=== PATIENT | female | born 1990 | race Caucasian/White ===

== ENCOUNTER → 2016-05-23 | Outpatient (CLI) | payer BC | LOC: BHSO 15:34 | DX: F41.1 Generalized anxiety disorder (principal) ==

== ENCOUNTER → 2016-08-02 | Outpatient (CLI) | payer BC | LOC: BHSO 10:34 | DX: F41.1 Generalized anxiety disorder (principal) ==

== ENCOUNTER → 2016-12-07 | Outpatient (CLI) | payer BC | LOC: BHSO 15:11 | DX: F41.1 Generalized anxiety disorder (principal) ==

== ENCOUNTER → 2017-03-12 | Outpatient (CLI) | payer BC | LOC: BHSO 15:52 | DX: F41.1 Generalized anxiety disorder (principal) ==

== ENCOUNTER → 2017-09-12 | Outpatient (CLI) | payer OTHER | LOC: BHSO 08:53 | DX: F33.42 Major depressive disorder, recurrent, in full remission (principal) | CPT/HCPCS: G0463 ==

== ENCOUNTER → 2018-03-13 | Outpatient (CLI) | payer OTHER | LOC: BHSO 09:02 | DX: F33.42 Major depressive disorder, recurrent, in full remission (principal) | CPT/HCPCS: G0463 ==

== ENCOUNTER → 2018-09-09 | Outpatient (CLI) | payer OTHER | LOC: BHSO 08:52 | DX: F33.42 Major depressive disorder, recurrent, in full remission (principal) | CPT/HCPCS: G0463 ==

== ENCOUNTER → 2019-11-06 | Outpatient (CLI) | payer BC | LOC: BHSO 14:47 | DX: F33.42 Major depressive disorder, recurrent, in full remission (principal) | CPT/HCPCS: G0463 ==